=== PATIENT | female | born 2000 ===

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

== ENCOUNTER 2019-01-27 19:33 | Emergency (ER) | payer MEDICAID ==
[2019-01-27 20:44] VITALS: RESP 16; O2SAT 98
--- NOTE | 2019-01-27 21:50 | ED PDOC ---
HPI: Abdomen Time Seen by Provider: 01/27/19 21:29 Chief Complaint (Nursing): Fever Chief Complaint (Provider): abdominal pain History Per: Patient History/Exam Limitations: no limitations Onset/Duration Of Symptoms: Days (2), Waxing/Waning Current Symptoms Are (Timing): Still Present Location Of Pain/Discomfort: Diffuse Additional Complaint(s): 18 y/o female presents for evaluation of diffuse abdominal pain x 2 days. Associated nausea, diarrhea, back pain, fever (tmax 100.4F). Patient states she was here for similar symptoms yesterday and after being discharged pain became worse. Denies headache, vomiting, cough, congestion, dysuria, hematuria. Patient's younger brother sick with similar symptoms Past Medical History Reviewed: Historical Data, Nursing Documentation, Vital Signs Vital Signs: Last Vital Signs Temp 99.2 F 01/27/19 20:44 Pulse 104 H 01/27/19 20:44 Resp 16 01/27/19 20:44 BP 106/69 01/27/19 20:44 Pulse Ox 98 01/27/19 20:44 - Medical History PMH: No Chronic Diseases - Surgical History Surgical History: No Surg Hx - Family History Family History: States: Unknown Family Hx - Living Arrangements Living Arrangements: With Family - Home Medications Home Medications: Ambulatory Orders Medication Instructions Recorded DiphenhydrAMINE [Benadryl] 50 mg PO Q6 PRN #30 cap 07/15/18 predniSONE [Prednisone] 40 mg PO DAILY #8 tab 07/15/18 Cefpodoxime [Vantin] 200 mg PO BID #20 tab 01/27/19 Dicyclomine [Bentyl] 20 mg PO TID PRN #15 tab 01/27/19 - Allergies Allergies/Adverse Reactions: Allergies Allergy/AdvReac Type Severity Reaction Status Date / Time No Known Allergies Allergy Unverified 06/18/13 12:44 Review of Systems ROS Statement: Except As Marked, All Systems Reviewed And Found Negative Constitutional: Positive for: Fever Gastrointestinal: Positive for: Nausea, Abdominal Pain Musculoskeletal: Positive for: Back Pain Physical Exam - Reviewed Nursing Documentation Reviewed: Yes Vital Signs Reviewed: Yes - Physical Exam Appears: Positive for: Well, Non-toxic, No Acute Distress Head Exam: Positive for: ATRAUMATIC, NORMAL INSPECTION, NORMOCEPHALIC Skin: Positive for: Normal Color Eye Exam: Positive for: Normal appearance ENT: Positive for: Normal ENT Inspection Cardiovascular/Chest: Positive for: Regular Rate, Rhythm Respiratory: Positive for: Normal Breath Sounds Gastrointestinal/Abdominal: Positive for: Bowel Sounds, Soft, Tenderness (RUQ, epigastric, LUQ) Back: Positive for: L CVA Tenderness. Negative for: R CVA Tenderness, Decreased ROM, Muscle Spasm Extremity: Positive for: Normal ROM Neurological/Psych: Positive for: Awake, Alert, Oriented (x3) - Laboratory Results Result Diagrams: 01/27/19 22:16 01/27/19 22:16 - ECG O2 Sat by Pulse Oximetry: 98 - Progress ED Course And Treament: -cbc -cmp -lipase -upreg -urinalysis -IV Ns bolus -IV pepcid -IV zofran -PO bentyl On re-eval, patient states she is feeling better, abdominal pain resolved Patient educated on findings, discharged with rx Cefpodoxime, bentyl Advised fluids, bland diet Follow up with PMD within 2-3 days Return precautions given Disposition - Clinical Impression Clinical Impression: UTI (urinary tract infection), Gastroenteritis - Patient ED Disposition Is Patient to be Admitted: No Counseled Patient/Family Regarding: Studies Performed, Diagnosis, Need For Followup, Rx Given - Disposition Disposition: Routine/Home Disposition Time: 23:56 Condition: IMPROVED Prescriptions: Dicyclomine [Bentyl] 20 mg PO TID PRN #15 tab PRN Reason: Pain, Mild (1-3) Nitrofurantoin Macrocrystals [Macrobid] 100 mg PO BID #9 cap Instructions: Kidney Infection, Gastroenteritis (ED) Forms: [employer] (Bengali)
[2019-01-27 22:28] LABS: BASO % 0.2 % (0.0-2.0); EOS # 0.1 K/uL (0.0-0.7); EOS % 1.3 % (0.0-4.0); HEMOGLOBIN 13.9 g/dL (12.0-16.0); LYMPH # 0.9 K/uL (1.0-4.3); MEAN CELL VOLUME 91.2 fl (81.0-99.0); MEAN CORPUSCULAR HEMOGLOBIN 30.4 pg (27.0-31.0); MEAN CORPUSCULAR HGB CONC 33.3 g/dL (33.0-37.0); MONO # 1.3 K/uL (0.0-0.8); MONO % 18.7 % (0.0-10.0); NEUT # 4.6 K/uL (1.8-7.0); NEUT % 66.8 % (50.0-75.0); RBC 4.55 Mil/uL (3.80-5.20); RED CELL DISTRIBUTION WIDTH 12.5 % (11.5-14.5); WHITE BLOOD COUNT 6.9 K/uL (4.8-10.8)
[2019-01-27 22:29] LABS: SQUAMOUS EPITHIAL 2 /hpf (0-5); URINE BACTERIA RARE (<OCC); URINE BILIRUBIN NEGATIVE (NEGATIVE); URINE BLOOD NEGATIVE (NEGATIVE); URINE CLARITY SLIGHTY-CLOUDY (Clear); URINE COLOR YELLOW (YELLOW); URINE GLUCOSE (UA) NEG (NEGATIVE); URINE LEUKOCYTE ESTERASE LARGE Leu/uL (Negative); URINE PROTEIN NEGATIVE (NEGATIVE)
[2019-01-27] MEDS: Sodium Chloride 0.9% 1,000 ML IV STA (22:33)
[2019-01-27 22:39] LABS: ALB/GLOB RATIO 1.4 (1.0-2.1); ALBUMIN 4.5 g/dL (3.5-5.0); ALT/SGPT 18 U/L (9-52); AST/SGOT 25 U/L (14-36); BLOOD UREA NITROGEN 11 mg/dl (7-17); CALCIUM 9.4 mg/dL (8.4-10.2); GFR NON-AFRICAN AMERICAN > 60; LIPASE 39 U/L (23-300)
[2019-01-27] MEDS ORDERED: Tmp-Smz 800 mg-160 mg DS Tab ONE (23:49)
[2019-01-28 00:05] VITALS: BP 113/63; PULSE 73; TEMP 98.3
== END 2019-01-28 00:07 | disposition home or self-care (01) ==
LOC: H.ER 19:33
DX: N39.0 Urinary tract infection, site not specified (principal); K52.9 Noninfective gastroenteritis and colitis, unspecified
CPT/HCPCS: 80053; 81003; 81025; 83690; 85025; 87086; 87430; 96361; 96374; 96375; 99285; J2405; J7030